=== PATIENT | female | born 1935 | race Asian ===

== ENCOUNTER 2022-08-20 15:52 | Emergency (ER) | payer OTHER ==
[2022-08-20 16:12] VITALS: BP 140/93; PULSE 81; RESP 20; TEMP 97.9; BMI 26.2
[2022-08-20] MEDS ORDERED: LIDOCAINE HCL 1%, 10 MG/ML (50 mL VIAL) INF ONE (19:09)
[2022-08-20] MEDS ORDERED: ACETAMINOPHEN 325 MG TABLET (FP) PO ONE (19:11)
[2022-08-20] MEDS ORDERED: LIDOCAINE HCL 1%, 10 MG/ML (20ML VIAL) ONE (19:21)
[2022-08-20] MEDS ORDERED: ACETAMINOPHEN 325 MG TABLET (FP) ONE (19:22)
[2022-08-20] MEDS ORDERED: BACITRACIN 15 GM TUBE TOPICAL OINTMENT TP ONE (19:32)
[2022-08-20] MEDS ORDERED: DIPHTH,PERTUSS(ACELL),TET 0.5 ML DISP.SYRIN IM ONE ×2 (19:32→19:34)
[2022-08-20] MEDS ORDERED: BACITRACIN 0.9 GM PACKET ONE (19:34)
== END 2022-08-20 20:03 | disposition home or self-care (01) ==
LOC: JER 15:52
PROC: 0HQ0XZZ Repair Scalp Skin, External Approach (ICD-10-PCS; principal; 2022-08-20)
PROC: 3E0234Z Introduction of Serum, Toxoid and Vaccine into Muscle, Percutaneous Approach (ICD-10-PCS; 2022-08-20)
DX: S01.01XA Laceration without foreign body of scalp, initial encounter (principal); S09.90XA Unspecified injury of head, initial encounter; W01.0XXA Fall on same level from slipping, tripping and stumbling without subsequent striking against object, initial encounter
CPT/HCPCS: 0241U-QW; 12002-25; 70450-TC; 72125-TC; 90471; 90715; 99285-25